=== PATIENT | female | born 1940 | race Asian ===

== ENCOUNTER 2021-03-07 06:12 | Day surgery (SDC) | payer MEDICARE, OTHER ==
[2021-03-05 13:13] LABS: COVID AG,FIA SOURCE NASOPHARYNGEAL
[~2021-03-07] VITALS: Ht 162.6 cm; Wt 60.5 kg
[~2021-03-07 06:12] MED LIST: ALLO100T PO; ATOR40TA71 PO; CALC0.25 PO; CHLO25TA3 PO; DESO515C TP; DULA0.75 SQ; GLIP2.5T17 PO; METO50 PO; SODIUM CHLORIDE 0.9% 500 ML IV ONE; TELM80TA10 PO; TEMA15CA PO
[2021-03-07] MEDS ORDERED: BALANCED SALT 15 ML OPHTHALMIC IRRIG.SOLN IO ONE (06:13)
[2021-03-07] MEDS ORDERED: EPINEPHrine 1:1,000 [1 MG/ML] AMP ET ONE (06:13)
[2021-03-07] MEDS ORDERED: POVIDONE-IODINE 10% 15 ML SOLUTION UD TP ONE (06:13)
[2021-03-07] MEDS ORDERED: TETRACAINE HCL/PF 0.5% 4 ML OPHTHALMIC SOLUTION OD ONE (06:13)
[2021-03-07] MEDS ORDERED: CHONDR SULF A SOD/HYALURONATE 1.05 ML KIT IO ONE (06:13)
[2021-03-07] MEDS ORDERED: LIDOCAINE/PF 1% 2 ML VIAL CAUDAL ONE (06:13)
[2021-03-07] MEDS: TROPICAMIDE 1% 2 ML OPHTHALMIC SOLUTION OD SCH ×3 (06:59→07:14)
[2021-03-07] MEDS: PHENYLEPHRINE HCL 2.5% 2 ML OPHTHALMIC SOLUTION OD SCH ×3 (06:59→07:14)
[2021-03-07] MEDS: KETOROLAC TROMETHAMINE 0.5% 5 ML OPHTHALMIC SOLUTION OD SCH ×3 (07:00→07:15)
[2021-03-07] MEDS: MOXIFLOXACIN HCL 0.5% 3 ML OPHTHALMIC SOLUTION OD SCH ×3 (07:00→07:14)
[2021-03-07 07:17] LABS: GLUCOMETER DEV NAME(LOC) SDS.; GLUCOSE,POINT OF CARE 140 MG/DL (70-110)
[2021-03-07] MEDS ORDERED: METO25 PO (07:30)
[2021-03-07] MEDS ORDERED: ASPI-1450 PO (07:30)
[2021-03-07] MEDS ORDERED: AMLO2.5T96 PO (07:30)
[2021-03-07] MEDS ORDERED: SODIUM CHLORIDE 0.9% 500 ML IV ONE (09:00)
[2021-03-07] MEDS ORDERED: MIDAZOLAM HCL 2 MG/2 ML VIAL IVP ONE (12:00)
[2021-03-07] MEDS ORDERED: FentaNYL CITRATE PF 100 MCG/2 ML VIAL IVP ONE (12:00)
== END 2021-03-07 09:00 | disposition home or self-care (01) ==
LOC: SURGERY 06:12
PROVIDERS: ATTEND Ophthalmology
DX: E11.36 Type 2 diabetes mellitus with diabetic cataract (principal); H25.11 Age-related nuclear cataract, right eye; I10 Essential (primary) hypertension; E11.22 Type 2 diabetes mellitus with diabetic chronic kidney disease; N18.9 Chronic kidney disease, unspecified; Z98.890 Other specified postprocedural states; Z79.899 Other long term (current) drug therapy
CPT/HCPCS: 66984; 82962; 87426; 93005; A9575; C9803; J0171; J2250; J3010; J3490; J7040; V2632